=== PATIENT | female | born 1980 | race Caucasian/White ===

== ENCOUNTER 2025-05-12 23:44 | Emergency (ER) | payer SELFPAY ==
[~2025-05-12] VITALS: Ht 162.6 cm; Wt 98.4 kg
[2025-05-12 23:49] VITALS: PULSE 74; RESP 18; TEMP 99
[2025-05-13] MEDS ORDERED: IBUPROFEN 600 MG TAB PO STA (00:04)
[2025-05-13] MEDS ORDERED: CEPHALEXIN500 MG PO (00:09)
[2025-05-13] MEDS ORDERED: IBUPROFEN800 MG PO (00:11)
[2025-05-13 00:13] VITALS: BP 171/92; PULSE 74; RESP 18; TEMP 99; O2SAT 98
[2025-05-13] MEDS ORDERED: CEPHALEXIN MONOHYDRATE 250 MG CAP PO ONE (00:15)
== END 2025-05-13 00:23 | disposition home or self-care (01) ==
LOC: FSED 23:51
DX: L03.317 Cellulitis of buttock (principal); F41.9 Anxiety disorder, unspecified; F43.10 Post-traumatic stress disorder, unspecified
CPT/HCPCS: 99283